=== PATIENT | female | born 1965 | race Two or more races ===

== ENCOUNTER 2022-04-16 14:36 | Inpatient (IN) | payer MEDICAID, OTHER ==
[~2022-04-16] VITALS: Ht 154.9 cm; Wt 51.9 kg
[2022-04-16] MEDS ORDERED: LACTATED RINGER'S 250 ML IV ONE (16:15)
[2022-04-16 16:44] LABS: Basophils # (auto) 0 10 ^3/uL (0-0.2); Basophils % (auto) 0.2 % (0.0-2.0); Eosinophils # (auto) 0 10 ^3/uL (0-0.8); Hematocrit 34.2 % (36.0-46.0); Hemoglobin 11.2 g/dL (12.2-16.2); Lymphocytes # (auto) 0.6 10 ^3/uL (0.4-5.4); Lymphocytes % (auto) 2.6 % (10.0-50.0); Mean Corpuscular Hgb Conc. 32.7 g/dL (32.0-36.0); Mean Corpuscular Volume 91.9 fL (80.0-100.0); Monocytes # (auto) 0.9 10 ^3/uL (0-1.3); Monocytes % (auto) 3.6 % (0.0-12.0); Neutrophils # (auto) 22.4 10 ^3/uL (1.6-8.6); Neutrophils % (auto) 93.6 % (37.0-80.0); Nucleated Red Blood Cells % 0.1 %; Red Blood Cells 3.72 10^6/uL (4.0-5.20); Red Cell Distribution Width 14.4 % (11.8-14.3); White Blood Cell 23.9 10^3/uL (4.4-10.8)
[2022-04-16 16:58] LABS: Albumin 2.1 g/dL (3.4-5.0); Calcium 7.7 mg/dL (8.5-10.1); Magnesium 1.9 mg/dL (1.6-2.6)
[2022-04-16 17:02] LABS: BUN/Creatinine Ratio 14.3; Bilirubin, Total 0.5 mg/dL (0.2-1.0); Total Protein 5.8 g/dL (6.4-8.2)
[2022-04-16 17:18] LABS: Potassium 2.7 mmol/L (3.5-5.1)
[2022-04-16] MEDS ORDERED: POTASSIUM EFFERVESENT TAB 25 MEQ GT ONE (17:30)
[2022-04-16] MEDS ORDERED: POTASSIUM CHL 20MEQ/100ML 100 ML IV ONE (17:30)
[2022-04-16] MEDS ORDERED: DexAMETHasone SOD PHOS 10MG/1ML VIAL INJ IV ONE (19:30)
[2022-04-16] MEDS ORDERED: ALBUTEROL SULF 2.5 MG/0.5ML(0.5%) NEB SOLN NEB ONE (19:30)
[2022-04-16] MEDS ORDERED: MAGNESIUM SULFATE 1GM/100ML 100 ML IV ONE (19:30)
[2022-04-16] MEDS ORDERED: IPRATROPIUM BROM 0.5 MG/2.5ML INH SOL NEB ONE (19:30)
[2022-04-16] MEDS ORDERED: ALBUMIN 25% 100 ML IV ONE (19:45)
[2022-04-16] MEDS ORDERED: cefTRIAXone 1GM/50ML D5W 50 ML IV ONE (20:00)
[2022-04-16 20:02] LABS: Urine Bacteria FEW /hpf (None Seen); Urine Blood Negative /uL (Negative); Urine Hyaline Cast FEW /lpf (0 - 2); Urine Specific Gravity 1.016 (1.001-1.035); Urine WBC 59 /hpf (0 - 5)
[2022-04-16 20:32] LABS: Cholesterol 92 mg/dL (< 200)
[2022-04-16 20:35] LABS: HDL Cholesterol 6 mg/dL (40-59); LDL Cholesterol 52 mg/dL (< 100); Triglycerides 143 mg/dL (< 150)
[2022-04-16] MEDS ORDERED: MORPHINE SULFATE INJ 2 MG/ml SYRG IV PRN ×2 (21:00)
[2022-04-16] MEDS ORDERED: ALBUTEROL SULF 2.5 MG/0.5ML(0.5%) NEB SOLN NEB PRN (21:00)
[2022-04-16] MEDS ORDERED: ACETAMINOPHEN 325 MG TAB PO PRN (21:00)
[2022-04-16] MEDS ORDERED: IPRATROPIUM BROM 0.5 MG/2.5ML INH SOL NEB PRN (21:00)
[2022-04-16] MEDS ORDERED: NITROGLYCERIN 0.4 MG SL TAB SL PRN (21:00)
[2022-04-16 22:02] VITALS: BP 118/66
[2022-04-16 22:43] LABS: Calcium 7.2 mg/dL (8.5-10.1)
[2022-04-16 22:48] LABS: BUN/Creatinine Ratio 14.7
[2022-04-16 22:53] LABS: Potassium 2.8 mmol/L (3.5-5.1)
[2022-04-16 23:44] VITALS: BP 122/60
[2022-04-17] MEDS: HYDROcodone-ACET 5/325MG TAB PO PRN ×2 (00:04→19:58)
[2022-04-17 00:25] VITALS: BP 122/60
[2022-04-17] MEDS ORDERED: NAPR375T27 PO (01:05)
[2022-04-17] MEDS ORDERED: MECL25TA18 PO (01:05)
[2022-04-17] MEDS ORDERED: ZOLP5TAB5 PO (01:05)
[2022-04-17] MEDS ORDERED: ACYC1CAP23 PO (01:05)
[2022-04-17] MEDS ORDERED: BACL10TA PO (01:05)
[2022-04-17] MEDS ORDERED: ASPI-543 PO (01:05)
[2022-04-17] MEDS ORDERED: SILD50TA42 PO (01:05)
[2022-04-17] MEDS ORDERED: BUPR-160 PO (01:05)
[2022-04-17] MEDS ORDERED: OMEP20TA PO (01:05)
[2022-04-17] MEDS ORDERED: FURO20TA3 PO (01:05)
[2022-04-17] MEDS ORDERED: DOCU-94 PO (01:05)
[2022-04-17 05:00] VITALS: BP 100/57
[2022-04-17 06:35] LABS: Basophils # (auto) 0 10 ^3/uL (0-0.2); Basophils % (auto) 0.1 % (0.0-2.0); Eosinophils # (auto) 0 10 ^3/uL (0-0.8); Hematocrit 30.7 % (36.0-46.0); Hemoglobin 10.2 g/dL (12.2-16.2); Lymphocytes # (auto) 0.3 10 ^3/uL (0.4-5.4); Lymphocytes % (auto) 1.8 % (10.0-50.0); Mean Corpuscular Hemoglobin 31.3 pg (28.0-32.0); Mean Corpuscular Hgb Conc. 33.3 g/dL (32.0-36.0); Mean Corpuscular Volume 93.9 fL (80.0-100.0); Monocytes # (auto) 0.4 10 ^3/uL (0-1.3); Monocytes % (auto) 2.2 % (0.0-12.0); Neutrophils # (auto) 15.8 10 ^3/uL (1.6-8.6); Neutrophils % (auto) 95.9 % (37.0-80.0); Red Blood Cells 3.27 10^6/uL (4.0-5.20); Red Cell Distribution Width 15.2 % (11.8-14.3); White Blood Cell 16.4 10^3/uL (4.4-10.8)
[2022-04-17 06:50] LABS: Albumin 2.1 g/dL (3.4-5.0); BUN/Creatinine Ratio 16.9; Calcium 7.7 mg/dL (8.5-10.1); Potassium 3.5 mmol/L (3.5-5.1)
[2022-04-17 06:59] LABS: Bilirubin, Total 0.3 mg/dL (0.2-1.0)
[2022-04-17] MEDS ORDERED: MAGNESIUM OXIDE 400 MG TAB PO ONE (10:45)
[2022-04-17] MEDS ORDERED: POTASSIUM CHL 20 Meq TABLET PO ONE (10:45)
[2022-04-17] MEDS: ENOXAPARIN SOD 40 MG/0.4 ML SYRINGE SC SCH (11:44)
[2022-04-17] MEDS: cefTRIAXone 1GM/50ML D5W 50 ML IV SCH (11:44)
[2022-04-17] MEDS: NICOTINE 7MG/24HR TOPICAL PATCH TD SCH (11:45)
[2022-04-17] MEDS: IPRATROPIUM BROM 0.5 MG/2.5ML INH SOL NEB SCH ×2 (12:12→18:41)
[2022-04-17] MEDS: ALBUTEROL SULF 2.5 MG/0.5ML(0.5%) NEB SOLN NEB SCH ×2 (12:13→18:41)
[2022-04-17 12:41] VITALS: BP 121/64
[2022-04-17 16:33] VITALS: BP 106/66
[2022-04-17] MEDS ORDERED: DOCUSATE SOD 100 MG CAP PO SCH (22:00)
[2022-04-17] MEDS ORDERED: DOCUSATE SOD 100 MG CAP PO PRN (22:15)
[2022-04-18] VITALS (8 sets, daily range): BP systolic 105–135; BP diastolic 50–78
[2022-04-18] MEDS: ALBUTEROL SULF 2.5 MG/0.5ML(0.5%) NEB SOLN NEB SCH ×3 (06:21→18:18)
[2022-04-18] MEDS: IPRATROPIUM BROM 0.5 MG/2.5ML INH SOL NEB SCH ×3 (06:22→18:18)
[2022-04-18 06:46] LABS: Basophils # (auto) 0 10 ^3/uL (0-0.2); Basophils % (auto) 0.1 % (0.0-2.0); Eosinophils # (auto) 0 10 ^3/uL (0-0.8); Eosinophils % (auto) 0.2 % (0.0-7.0); Hematocrit 30.7 % (36.0-46.0); Hemoglobin 10.2 g/dL (12.2-16.2); Lymphocytes # (auto) 0.6 10 ^3/uL (0.4-5.4); Lymphocytes % (auto) 5.9 % (10.0-50.0); Mean Corpuscular Hemoglobin 30.5 pg (28.0-32.0); Mean Corpuscular Hgb Conc. 33.1 g/dL (32.0-36.0); Mean Corpuscular Volume 92.2 fL (80.0-100.0); Monocytes # (auto) 0.6 10 ^3/uL (0-1.3); Monocytes % (auto) 5.8 % (0.0-12.0); Neutrophils # (auto) 9.4 10 ^3/uL (1.6-8.6); Nucleated Red Blood Cells % 0.1 %; Red Blood Cells 3.33 10^6/uL (4.0-5.20); Red Cell Distribution Width 14.7 % (11.8-14.3); White Blood Cell 10.7 10^3/uL (4.4-10.8)
[2022-04-18 06:47] LABS: Calcium 7.8 mg/dL (8.5-10.1); Magnesium 2.3 mg/dL (1.6-2.6); Potassium 3.8 mmol/L (3.5-5.1)
[2022-04-18 06:49] LABS: BUN/Creatinine Ratio 30.2
[2022-04-18] MEDS: cefTRIAXone 1GM/50ML D5W 50 ML IV SCH (09:05)
[2022-04-18] MEDS: ENOXAPARIN SOD 40 MG/0.4 ML SYRINGE SC SCH (09:06)
[2022-04-18] MEDS: NICOTINE 7MG/24HR TOPICAL PATCH TD SCH (09:06)
[2022-04-18] MEDS ORDERED: OMEP20TA PO (10:49)
[2022-04-18] MEDS ORDERED: buPROPion HCL 100 MG TAB PO SCH (14:00)
[2022-04-19 05:17] VITALS: BP 130/73
[2022-04-19] MEDS: ALBUTEROL SULF 2.5 MG/0.5ML(0.5%) NEB SOLN NEB SCH ×2 (06:53→11:51)
[2022-04-19] MEDS: IPRATROPIUM BROM 0.5 MG/2.5ML INH SOL NEB SCH ×2 (06:53→11:51)
[2022-04-19 08:00] VITALS: BP_SYST 134; BP_SYST 138; BP_DIAS 77; BP_DIAS 81
[2022-04-19] MEDS: HYDROcodone-ACET 5/325MG TAB PO PRN (08:12)
[2022-04-19] MEDS: NICOTINE 7MG/24HR TOPICAL PATCH TD SCH (09:44)
[2022-04-19] MEDS: cefTRIAXone 1GM/50ML D5W 50 ML IV SCH (09:45)
[2022-04-19] MEDS: ENOXAPARIN SOD 40 MG/0.4 ML SYRINGE SC SCH (09:45)
[2022-04-19] MEDS ORDERED: ASPirin-EC 81 mg tab PO SCH (10:00)
[2022-04-19] MEDS ORDERED: SILDENAFIL 25 MG PO SCH (10:00)
[2022-04-19] MEDS ORDERED: LEVO500T31 PO (10:50)
[2022-04-19 11:35] VITALS: BP 138/77
[2022-04-19 11:49] VITALS: BP 110/77
== END 2022-04-19 12:55 | disposition home or self-care (01) | DRG 720 ==
LOC: ER 14:36 → TELE 21:00 → TELE-CENTR 23:17 → CENTRAL 04-17 18:55
PROVIDERS: ADMIT Registered Nurse; ATTEND Internal Medicine
DX: A41.9 Sepsis, unspecified organism (principal); E43 Unspecified severe protein-calorie malnutrition; I27.20 Pulmonary hypertension, unspecified; I11.0 Hypertensive heart disease with heart failure; J96.10 Chronic respiratory failure, unspecified whether with hypoxia or hypercapnia; I95.9 Hypotension, unspecified; I50.9 Heart failure, unspecified; J44.1 Chronic obstructive pulmonary disease with (acute) exacerbation; F17.210 Nicotine dependence, cigarettes, uncomplicated; Z20.822 Contact with and (suspected) exposure to COVID-19; E03.9 Hypothyroidism, unspecified; E78.5 Hyperlipidemia, unspecified; R73.9 Hyperglycemia, unspecified; N30.00 Acute cystitis without hematuria; E87.6 Hypokalemia; Z79.899 Other long term (current) drug therapy; Z68.21 Body mass index [BMI] 21.0-21.9, adult
CPT/HCPCS: 36415; 71045; 80048; 80053; 80061; 81001; 83036; 83605; 83735; 83880; 84443; 84484; 85025; 87040; 87045; 87070; 87077; 87086; 87186; 87205; 87426; 87427; 93005; 94640; 94644; 96365; 96367; 96368; 96375; G0378; J0696; J1100; J3480; P9047